=== PATIENT | male | born 1955 | race Caucasian/White ===

== ENCOUNTER 2019-10-30 20:45 | Emergency (ER) | payer MEDICARE, MEDICAID ==
[~2019-10-30] VITALS: Ht 170.2 cm; Wt 79.0 kg
[~2019-10-30 20:45] MED LIST: CARV25TA12 PO; CARVEDILOL PO; LASIX PO; WARFARIN PO; phoslo PO
--- NOTE | 2019-10-30 20:50 | NUR ---
TRAN RN: DORON STATED HE COULD NOT TAKE HIS JACKET OFF TO DO EKG IN TRIAGE
[2019-10-30 21:40] LABS: BASOPHILS # (AUTO) 0.04 x10^3/uL (0-0.1); BASOPHILS % (AUTO) 1 % (0-1); EOSINOPHILS # (AUTO) 0.13 x10^3/uL (0-0.4); EOSINOPHILS % (AUTO) 2 % (1-7); LYMPHOCYTES % (AUTO) 9 % (22-44); MD NO; MEAN CORPUSCULAR HEMOGLOBIN 30.7 pg (27.5-34.5); MEAN CORPUSCULAR VOLUME 95.9 fL (81-97); MEAN PLATELET VOLUME 7.6 fL (7.4-10.4); MONOCYTES # (AUTO) 0.72 x10^3/uL (0.2-0.8); MONOCYTES % (AUTO) 14 % (2-9); NEUTROPHILS # (AUTO) 3.96 x10^3/uL (1.8-6.8); NEUTROPHILS % (AUTO) 74 % (42-75); PLATELET COUNT 278 x10^3/uL (130-400); RED BLOOD COUNT 3.93 x10^6/uL (4.38-5.82); RED CELL DISTRIBUTION WIDTH 17.6 % (9.4-14.8)
[2019-10-30 21:45] LABS: INTERNATIONAL NORMALIZED RATIO 1.12 (0.93-1.1); PROTHROMBIN TIME 11.5 Seconds (9.6-11.5)
[2019-10-30 21:50] LABS: ALANINE AMINOTRANSFERASE 26 U/L (12-78); ALBUMIN 3.3 g/dL (3.4-5.0); ANION GAP 11 mmol/L (5-15); CALCIUM 6.9 mg/dL (8.5-10.1); CHLORIDE 103 mmol/L (98-107); CREATININE 6.89 mg/dL (0.7-1.3)
[2019-10-30 21:54] LABS: ALKALINE PHOSPHATASE 44 U/L (45-117); BILIRUBIN,TOTAL 0.6 mg/dL (0.2-1.0); TOTAL PROTEIN 7.3 g/dL (6.4-8.2); TROPONIN I 0.026 ng/mL (0.000-0.045)
[2019-10-30 22:28] VITALS: BP 145/90
[2019-11-01] MEDS ORDERED: ALPR0.5T6 PO (15:52)
== END 2019-10-30 22:40 | disposition home or self-care (01) ==
LOC: ED 21:58
DX: R06.00 Dyspnea, unspecified (principal); I44.7 Left bundle-branch block, unspecified; I12.0 Hypertensive chronic kidney disease with stage 5 chronic kidney disease or end stage renal disease; N18.6 End stage renal disease; Z99.2 Dependence on renal dialysis; Z86.718 Personal history of other venous thrombosis and embolism
CPT/HCPCS: 36415; 71045; 80053; 84484; 85025; 85610; 93005; 99285

== ENCOUNTER 2019-11-30 16:20 | Inpatient (IN) | payer MEDICARE, MEDICAID ==
[~2019-11-30] VITALS: Ht 170.2 cm; Wt 74.8 kg
[~2019-11-30 16:20] MED LIST changes: +ALPR0.5T6 PO; +ASPI81TA45 PO; +FLUT1AER INH; +SODI10PO PO
[2019-11-30] MEDS ORDERED: SODIUM CHLORIDE FLUSH 10ML SYR IVF ONE (17:00)
[2019-11-30 17:36] LABS: BASOPHILS % (AUTO) 1 % (0-1); EOSINOPHILS % (AUTO) 6 % (1-7); LYMPHOCYTES % (AUTO) 11 % (22-44); MEAN CORPUSCULAR HGB CONC 31.3 g/dL (33.2-36.2); MEAN PLATELET VOLUME 7.4 fL (7.4-10.4); MONOCYTES % (AUTO) 15 % (2-9); NEUTROPHILS % (AUTO) 67 % (42-75); PLATELET COUNT 306 x10^3/uL (130-400); RED BLOOD COUNT 3.92 x10^6/uL (4.38-5.82); RED CELL DISTRIBUTION WIDTH 17.3 % (9.4-14.8)
[2019-11-30 17:45] LABS: ALANINE AMINOTRANSFERASE 14 U/L (12-78); ALBUMIN 3.8 g/dL (3.4-5.0); ANION GAP 8 mmol/L (5-15); CALCIUM 7.8 mg/dL (8.5-10.1); CHLORIDE 100 mmol/L (98-107)
[2019-11-30 17:49] LABS: MD NO
[2019-11-30 18:03] LABS: ALKALINE PHOSPHATASE 50 U/L (45-117); BILIRUBIN,TOTAL 0.8 mg/dL (0.2-1.0); CREATININE 7.61 mg/dL (0.7-1.3); TOTAL PROTEIN 7.8 g/dL (6.4-8.2); TROPONIN I 0.017 ng/mL (0.000-0.045)
--- NOTE | 2019-11-30 19:51 | NUR ---
THIS IS A 64Y M THAT COMES IN TONIGHT FOR SOB, PT HAS END STAGE RENAL DISEASE AND GETS DIALYSIS TUES THURS SAT FOR THIS. PT STS HE IS COMPLIANT WITH TREATMENT AND STARTED FEELING SHORT OF BREATH FOLLOWING HIS LAST DIALYSIS YESTERDAY. PT ABLE TO SPEAK IN FULL SENTENCES ASKING FOR FOOD UPON ARRIVAL TO ROOM. PT CONNECTED TO ALL MONITORING VSS NADN, REQ BUS PASS/ TAXI VOUCHER.
--- NOTE | 2019-11-30 20:44 | NUR ---
ALL RESULTS BACK CHART UP FOR RECHECK
[2019-11-30] MEDS ORDERED: INSULIN REGULAR 100 UNITS/ML, 3ML VIAL IVPush ONE (21:00)
[2019-11-30] MEDS ORDERED: DEXTROSE 50%, 50ML SYRINGE IVPush ONE (21:00)
[2019-11-30] MEDS ORDERED: FUROSEMIDE 40 MG/4 ML IVPush ONE (21:00)
[2019-11-30] MEDS ORDERED: SODIUM BICARB 8.4%, 50ML SYRINGE IVPush ONE (21:00)
[2019-11-30] MEDS ORDERED: SODIUM POLY SULFONATE UDC 15 GM/60 ML PO ONE (21:00)
[2019-11-30] MEDS ORDERED: LABETALOL 5MG/ML, 20ML IVPush PRN (21:30)
[2019-11-30] MEDS ORDERED: ONDANSETRON 2MG/ML, 2ML IVPush PRN (21:30)
[2019-11-30] MEDS ORDERED: SODIUM POLY SULFONATE UDC 15 GM/60 ML ONE ×2 (21:56→22:46)
[2019-11-30] MEDS ORDERED: FUROSEMIDE 40 MG/4 ML ONE (21:56)
[2019-11-30] MEDS ORDERED: DEXTROSE 50%, 50ML SYRINGE ONE (21:56)
[2019-11-30] MEDS ORDERED: SODIUM BICARB 8.4%, 50ML SYRINGE ONE (21:56)
[2019-11-30] MEDS: SODIUM ZIRCONIUM CYCLOSILICATE 10 GM PO SCH (22:00)
--- NOTE | 2019-11-30 22:54 | NUR ---
PT PROVIDED CRACKERS AND PEANUT BUTTER, PT SHOUTING AT RN WANTS SALTINES AND JUICE WITH ICE, PT REFUSES WATER STS "I DON'T DRINK THAT"
[2019-11-30] MEDS ORDERED: CARVEDILOL 12.5 MG TABLET ONE (23:01)
[2019-11-30] MEDS: CARVEDILOL 25 MG TABLET PO SCH (23:09)
--- NOTE | 2019-11-30 23:32 | NUR ---
PT UP TO RESTROOM STEADY GAIT NO ASSIST REQUIRED
--- NOTE | 2019-12-01 00:15 | NUR ---
REPORT TO ERLINDA HEMPHILL ALL QUESTIONS ADDRESSED, PT READY FOR TRANSPORT TO ROOM 514
[2019-12-01 00:37] LABS: ANION GAP 10 mmol/L (5-15); CALCIUM 7.7 mg/dL (8.5-10.1); CHLORIDE 102 mmol/L (98-107); CREATININE 8.01 mg/dL (0.7-1.3)
[2019-12-01 00:38] LABS: INTERNATIONAL NORMALIZED RATIO 1.14 (0.93-1.1); PROTHROMBIN TIME 12.1 Seconds (9.6-11.5)
[2019-12-01 00:49] VITALS: BP 153/103
[2019-12-01] MEDS ORDERED: HEPARIN 5,000 UNITS/ML, 1ML IV ONE (01:00)
[2019-12-01] MEDS: HEPARIN 25,000 UNITS/250ML PMX 250 ML IV PRN (01:18)
[2019-12-01] MEDS: OXYcodone IR 5MG TABLET PO PRN ×2 (01:21→18:10)
[2019-12-01 03:03] VITALS: BP 142/93
[2019-12-01] MEDS ORDERED: MORPHINE SULFATE 4 MG/ML, 1ML IVPush ONE (03:30)
[2019-12-01] MEDS ORDERED: PROMETHAZINE 25 MG/ML, 1ML IM PRN (03:30)
[2019-12-01] MEDS ORDERED: MORPHINE SULFATE 4 MG/ML, 1ML ONE (03:31)
[2019-12-01] MEDS ORDERED: PROMETHAZINE 25 MG/ML, 1ML ONE (03:32)
[2019-12-01] MEDS: ASPIRIN 81 MG TABLET EC PO SCH (05:44)
[2019-12-01] MEDS: SODIUM ZIRCONIUM CYCLOSILICATE 10 GM PO SCH (08:21)
[2019-12-01 08:28] LABS: BASOPHILS % (AUTO) 1 % (0-1); EOSINOPHILS % (AUTO) 8 % (1-7); LYMPHOCYTES % (AUTO) 11 % (22-44); MEAN CORPUSCULAR HEMOGLOBIN 31.1 pg (27.5-34.5); MEAN CORPUSCULAR HGB CONC 32.5 g/dL (33.2-36.2); MEAN PLATELET VOLUME 7.5 fL (7.4-10.4); MONOCYTES % (AUTO) 12 % (2-9); NEUTROPHILS % (AUTO) 69 % (42-75); PLATELET COUNT 280 x10^3/uL (130-400); RED BLOOD COUNT 3.86 x10^6/uL (4.38-5.82); RED CELL DISTRIBUTION WIDTH 17.4 % (9.4-14.8)
[2019-12-01 08:36] LABS: MD NO
[2019-12-01 08:37] LABS: ANION GAP 11 mmol/L (5-15); CALCIUM 7.6 mg/dL (8.5-10.1); CHLORIDE 99 mmol/L (98-107); CREATININE 8.19 mg/dL (0.7-1.3)
[2019-12-01] MEDS: FLUTICASONE/VILANTEROL 100-25MCG/INH INH SCH (09:00)
[2019-12-01] MEDS: HEPARIN 5,000 UNITS/ML, 1ML IV PRN ×2 (09:35→18:03)
[2019-12-01] MEDS: CARVEDILOL 25 MG TABLET PO SCH ×2 (10:35→19:59)
[2019-12-01 11:13] VITALS: BP 158/106
[2019-12-01 16:50] VITALS: BP 109/70
[2019-12-01] MEDS: CALCIUM ACETATE 667 MG CAPSULE PO SCH ×2 (18:03→19:59)
[2019-12-01 18:43] VITALS: BP 116/63
[2019-12-02] MEDS: HEPARIN 5,000 UNITS/ML, 1ML IV PRN ×2 (00:53→08:22)
[2019-12-02] MEDS: HEPARIN 25,000 UNITS/250ML PMX 250 ML IV PRN (00:54)
[2019-12-02 01:46] VITALS: BP 110/67
[2019-12-02] MEDS: ASPIRIN 81 MG TABLET EC PO SCH (04:32)
[2019-12-02 07:16] VITALS: BP 114/72
[2019-12-02 07:20] LABS: BASOPHILS % (AUTO) 1 % (0-1); EOSINOPHILS % (AUTO) 7 % (1-7); LYMPHOCYTES % (AUTO) 7 % (22-44); MEAN CORPUSCULAR HEMOGLOBIN 31.4 pg (27.5-34.5); MEAN PLATELET VOLUME 7.6 fL (7.4-10.4); MONOCYTES % (AUTO) 15 % (2-9); NEUTROPHILS % (AUTO) 70 % (42-75); PLATELET COUNT 219 x10^3/uL (130-400); RED BLOOD COUNT 3.36 x10^6/uL (4.38-5.82); RED CELL DISTRIBUTION WIDTH 17.4 % (9.4-14.8)
[2019-12-02 07:24] LABS: MD NO
[2019-12-02 07:28] LABS: ANION GAP 7 mmol/L (5-15); CALCIUM 7.2 mg/dL (8.5-10.1); CHLORIDE 102 mmol/L (98-107)
[2019-12-02 07:30] LABS: CREATININE 5.44 mg/dL (0.7-1.3)
[2019-12-02] MEDS: CALCIUM ACETATE 667 MG CAPSULE PO SCH (08:16)
[2019-12-02] MEDS: CARVEDILOL 25 MG TABLET PO SCH (08:17)
[2019-12-02] MEDS: OXYcodone IR 5MG TABLET PO PRN (08:23)
[2019-12-02] MEDS ORDERED: CALCITRIOL 0.25 MCG CAPSULE PO SCH (09:00)
[2019-12-02] MEDS: FLUTICASONE/VILANTEROL 100-25MCG/INH INH SCH (09:00)
[2019-12-02] MEDS: SODIUM ZIRCONIUM CYCLOSILICATE 10 GM PO SCH (10:00)
== END 2019-12-02 10:05 | disposition left against medical advice (07) | DRG 640 ==
LOC: ED 20:07 → EDIP 21:29 → 5SO 12-01 00:33
PROVIDERS: ADMIT Family Medicine; ATTEND Internal Medicine
DX: E87.5 Hyperkalemia (principal); N18.6 End stage renal disease; I82.401 Acute embolism and thrombosis of unspecified deep veins of right lower extremity; D68.69 Other thrombophilia; F11.20 Opioid dependence, uncomplicated; I13.2 Hypertensive heart and chronic kidney disease with heart failure and with stage 5 chronic kidney disease, or end stage renal disease; J96.10 Chronic respiratory failure, unspecified whether with hypoxia or hypercapnia; M46.26 Osteomyelitis of vertebra, lumbar region; N25.81 Secondary hyperparathyroidism of renal origin; E87.1 Hypo-osmolality and hyponatremia; E83.51 Hypocalcemia; N25.0 Renal osteodystrophy; D63.8 Anemia in other chronic diseases classified elsewhere; E83.39 Other disorders of phosphorus metabolism; G89.29 Other chronic pain; I50.9 Heart failure, unspecified; J44.9 Chronic obstructive pulmonary disease, unspecified; R29.6 Repeated falls; S30.1XXA Contusion of abdominal wall, initial encounter; W18.39XA Other fall on same level, initial encounter; E83.41 Hypermagnesemia; Z53.29 Procedure and treatment not carried out because of patient's decision for other reasons; Y93.89 Activity, other specified; Y92.008 Other place in unspecified non-institutional (private) residence as the place of occurrence of the external cause; Y99.8 Other external cause status; Z86.718 Personal history of other venous thrombosis and embolism; Z87.891 Personal history of nicotine dependence; Z91.15 Patient's noncompliance with renal dialysis; Z91.19 Patient's noncompliance with other medical treatment and regimen; Z99.2 Dependence on renal dialysis
CPT/HCPCS: 36415; 71045; 72110; 72220; 80048; 80053; 80069; 83735; 83880; 84100; 84484; 85025; 85520; 85610; 90935; 93005; G0378; J1644; J1815; J1940; J2550; J2270

== ENCOUNTER 2019-12-31 15:22 | Emergency (ER) | payer MEDICARE, MEDICAID ==
[~2019-12-31] VITALS: Ht 170.2 cm; Wt 79.0 kg
[~2019-12-31 15:22] MED LIST changes: +OXYC1TAB18 PO
--- NOTE | 2019-12-31 16:51 | NUR ---
REGULATORY AFFAIRS CONSULTANT: PT TO ROOM FROM LOBBY
--- NOTE | 2019-12-31 17:03 | NUR ---
PT CAME IN CO OF CHEST TIGHTNESS AND PAIN, WHICH HE DESCRIBES SHARP. PT REPORTS THIS PAIN HAS BEEN THERE FOR THE PAST 2 WEEKS. PT WAS AT [facility] THE PREVIOUS 2 DAYS FOR SAME. "THEY TOLD ME IF I GOT DIALYSIS IT WOULD HELP MY PAIN OUT AND IT HASNT". PT STATES HE HAS END STAGE KIDNEY FAILURE AND GETS DIALYSIS TUESDAY, TUESDAY AND TUESDAY. PT RESTING IN RNEY CONNECTED TO ALL MONITORING EQUIPMENT.
[2019-12-31 18:11] LABS: BASOPHILS % (AUTO) 1 % (0-1); EOSINOPHILS % (AUTO) 5 % (1-7); LYMPHOCYTES % (AUTO) 14 % (22-44); MEAN CORPUSCULAR HEMOGLOBIN 31.5 pg (27.5-34.5); MEAN CORPUSCULAR HGB CONC 33.1 g/dL (33.2-36.2); MEAN PLATELET VOLUME 8.2 fL (7.4-10.4); MONOCYTES % (AUTO) 14 % (2-9); NEUTROPHILS % (AUTO) 66 % (42-75); PLATELET COUNT 232 x10^3/uL (130-400); RED BLOOD COUNT 4.06 x10^6/uL (4.38-5.82); RED CELL DISTRIBUTION WIDTH 18.6 % (9.4-14.8)
[2019-12-31 18:23] LABS: ALANINE AMINOTRANSFERASE 23 U/L (12-78); ALBUMIN 3.7 g/dL (3.4-5.0); ANION GAP 9 mmol/L (5-15); CALCIUM 7.8 mg/dL (8.5-10.1); CHLORIDE 102 mmol/L (98-107); CREATININE 8.07 mg/dL (0.7-1.3)
[2019-12-31 18:27] LABS: ALKALINE PHOSPHATASE 55 U/L (45-117); BILIRUBIN,TOTAL 0.6 mg/dL (0.2-1.0); TOTAL PROTEIN 7.5 g/dL (6.4-8.2); TROPONIN I < 0.015 ng/mL (0.000-0.045)
--- NOTE | 2019-12-31 18:47 | NUR ---
PT AMBULATED STEADILY TO BATHROOM.
[2019-12-31 18:48] LABS: MD SCAN
--- NOTE | 2019-12-31 18:53 | NUR ---
PT BACK IN [facility], NO NEEDS AT THIS TIME.
[2019-12-31] MEDS ORDERED: PIPERACILLIN/TAZO/PMX 2.25GM 50 ML IVPB ONE (19:30)
[2019-12-31] MEDS ORDERED: PIPERACILLIN/TAZO/PMX 3.375GM 50 ML ONE (19:37)
[2019-12-31 19:53] VITALS: BP 136/97
[2019-12-31] MEDS ORDERED: SODIUM ZIRCONIUM CYCLOSILICATE 10 GM PO ONE (20:30)
[2019-12-31] MEDS ORDERED: SODIUM BICARBONATE 1 MEQ/ML, 50ML VIAL IVPush ONE (20:30)
[2019-12-31] MEDS ORDERED: CALCIUM GLUCONATE 0.46MEQ/1ML IVPush ONE (20:30)
--- NOTE | 2019-12-31 20:32 | NUR ---
PT ASKED TO SIGN AMA FORM, PT STATES "I AM LEAVING AND I AM NOT SIGNING S."
--- NOTE | 2019-12-31 20:32 | NUR ---
PT TOLD THIS RN "I AM LEAVING, GET THIS NEEDLE OUT OF MY FOOT." PT REFUSING ALL MEDICATIONS ORDER. PT ALSO REFUSING TO SIGN AMA FORM. MD SCHWARTZ AWARE. PT AMBULATED WITH A STEADY GAIT TO LOBBY.
== END 2019-12-31 20:43 | disposition left against medical advice (07) ==
LOC: ED 20:35
DX: J15.9 Unspecified bacterial pneumonia (principal); N18.4 Chronic kidney disease, stage 4 (severe); E87.5 Hyperkalemia; I10 Essential (primary) hypertension; I44.7 Left bundle-branch block, unspecified; R07.89 Other chest pain; R06.02 Shortness of breath; R06.00 Dyspnea, unspecified; Z99.2 Dependence on renal dialysis; Z86.718 Personal history of other venous thrombosis and embolism; Z87.891 Personal history of nicotine dependence
CPT/HCPCS: 36415; 71045; 80053; 83880; 84484; 85025; 93005; 96365; 99285; J2543